=== PATIENT | female | born 1960 | race Caucasian/White ===

== ENCOUNTER 2018-02-28 08:16 | Outpatient (CLI) | payer OTHER ==
[2018-02-28 11:00] LABS: eGFR (African) > 60; eGFR (Non-African) > 60
== END 2018-02-28 08:17 ==
LOC: LAB 08:16
PROVIDERS: ATTEND Family Medicine
DX: I10 Essential (primary) hypertension (principal)
CPT/HCPCS: 36415; 80053; 80061

== ENCOUNTER 2018-03-17 17:09 | Outpatient (CLI) | payer OTHER | END 2018-03-17 17:10 | LOC: LABRHC 17:09 | PROVIDERS: ATTEND Family Medicine | DX: R73.9 Hyperglycemia, unspecified (principal) | CPT/HCPCS: 83036 ==